=== PATIENT | male | born 1980 | race Caucasian/White ===

== ENCOUNTER 2022-01-02 03:15 | Emergency (ER) | payer OTHER, SELFPAY ==
--- NOTE | ~2022-01-02 | XR_ITS ---
EXAMINATION: XR SHOULDER, LEFT CLINICAL INFORMATION: Injury and pain COMPARISON: None TECHNIQUE: Four views of the left shoulder. FINDINGS: Glenohumeral alignment is anatomic. No acute fracture is seen. The acromioclavicular joint is intact. XR/XR shoulder LT min 2V IMPRESSION: No acute findings.
--- NOTE | ~2022-01-02 | XR_ITS ---
EXAMINATION: XR HAND, RIGHT CLINICAL INFORMATION: Injury and pain COMPARISON: None TECHNIQUE: 3 views of the right hand. FINDINGS: There is chronic appearing deformity at the base of the fifth metacarpal most consistent with healed old fracture. No acute fracture is seen. Alignment throughout the hand is anatomic. No significant focal soft tissue abnormality identified. XR/XR hand wrist RT IMPRESSION: No acute findings identified.
[2022-01-02 03:24] VITALS: BP 166/83; PULSE 86; RESP 16; TEMP 36.6; O2SAT 99; BMI 30.2
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
== END 2022-01-02 06:13 | disposition home or self-care (01) ==
PROVIDERS: Emergency Provider Emergency Medicine; PCP Internal Medicine
DX: M79.642 Pain in left hand (principal); M25.512 Pain in left shoulder; M25.532 Pain in left wrist
CPT/HCPCS: 73030; 73110; 73130; 99282; 99283